=== PATIENT | female | born 1970 | race Asian ===

== ENCOUNTER 2022-02-17 08:09 | Outpatient (CLI) | payer OTHER, SELFPAY ==
[2022-02-17 09:14] LABS: Cholesterol 138 mg/dL (0-200); HDL Direct 48 mg/dL; Triglycerides 93 mg/dL (<150)
[2022-02-17 09:18] LABS: Creatinine Urine 14.9 mg/dL
[2022-02-17 09:21] LABS: MALB Creatinine Ratio 55.7 mg/g (0-30); Microalbumin Urine Random 8.3 mg/L (0-16.7)
[2022-02-17 09:24] LABS: LDL Cholesterol Direct 58 mg/dL
== END 2022-02-17 08:10 | disposition home or self-care (01) ==
LOC: ANHLAB 08:16
PROVIDERS: PCP Family Medicine; Visit Provider Family Medicine
DX: E78.5 Hyperlipidemia, unspecified (principal); E11.9 Type 2 diabetes mellitus without complications
CPT/HCPCS: 36415; 80061; 82043; 83036